=== PATIENT | male | born 1995 | race Asian ===

== ENCOUNTER 2022-12-16 12:43 | Emergency (ER) | payer BC ==
[2022-12-16] MEDS ORDERED: ONDANSETRON 4 MG/2 ML VIAL ONE (13:28)
[2022-12-16] MEDS ORDERED: MECLIZINE HCL 12.5 MG TAB ONE (13:30)
[2022-12-16] MEDS ORDERED: ONDANSETRON 4 MG (ODT) TAB ONE (13:31)
--- NOTE | 2022-12-16 13:33 | RAD REPORT ---
EXAM DESCRIPTION: CT - Head Brain Wo Cont - 12/16/2022 1:13 pm CLINICAL HISTORY: DIZZINESS Lightheadedness. COMPARISON: No comparisons TECHNIQUE: Noncontrast head CT images ad were obtained without IV contrast. Multiplanar reformats we re generated and reviewed. All CT scans are performed using dose optimization technique as appropriate and may include automated exposure control or mA/KV adjustment according to patient size. FINDINGS: No intracranial hemorrhage, mass, or edema. Midline structures are unremarkable. Normal ventricular caliber for age. Baig-white matter differentiation is preserved, without evidence of acute infarct. No abnormal extra- axial fluid collections. Mastoid air cells and visualized portions of the paranasal sinuses are clear. No acute bony findings. IMPRESSION: No evidence of an acute intracranial process.
[2022-12-16 13:43] LABS: Absolute Lymphocytes (CBC) 1.1 K/uL (0.7-4.9); Hematocrit 43.7 % (39.6-49.0); Lymphocytes % 25.7 % (15.3-44.8); MCV 78.2 fL (80-100); MPV 7.7 fL (7.6-11.3); RBC Red Blood Cell Count 5.59 M/uL (4.33-5.43)
[2022-12-16 13:47] LABS: Protime INR 0.98
[2022-12-16 14:05] LABS: Albumin 4.4 g/dL (3.4-5.0); Bilirubin Direct 0.1 mg/dL (0-0.2); Bilirubin Total 0.4 mg/dL (0.2-1.0); Magnesium 2.3 mg/dL (1.6-2.4); Potassium 3.7 mmol/L (3.5-5.1); Protein, Total 8.4 g/dL (6.4-8.2); Troponin High Sensitivity 4.1 pg/mL (<58.9)
--- NOTE | 2022-12-16 15:41 | EDPHYS ---
Physician Documentation [facility] Name: Aamir East Age: 27 yrs Sex: Male : 1995 Arrival Date: 12/16/2022 Time: 12:45 Bed 11 Private MD: ED Physician Dakota Rivas HPI: 12/16 13:01 This 27 yrs old Male presents to ER via EMS with complaints of Dizziness, jmm Weakness. 13:01 The patient presents with dizziness. Onset: The symptoms/episode began/occurred jmm acutely, just prior to arrival. Modifying factors: The symptoms are alleviated by nothing, the symptoms are aggravated by movement of head, changing position. This is a 27-year-old male with no chronic medical conditions the presents emerged part with complaints of palpitations and dizziness and generalized weakness. Patient states symptoms began while sitting in his chair he developed palpitations or shortness of breath. Patient went to stand up and was particularly dizzy and then subsequently developed generalized weakness. Denies any previous episode in the past. Denies chest pain. . Historical: - Allergies: 12:56 No Known Allergies; ap3 - Home Meds: 12:56 None [Active]; ap3 - PMHx: 12:56 None; ap3 - Immunization history:: Client reports receiving the 2nd dose of the Covid vaccine, Flu vaccine is not up to date. - Social history:: Smoking status: Patient denies any tobacco usage or history of. Patient uses alcohol, occasionally. ROS: 13:01 Constitutional: Positive for fatigue. jmm 13:01 Cardiovascular: Positive for palpitations. 13:01 Neuro: Positive for dizziness. 13:01 All other systems are negative. Exam: 13:01 Constitutional: This is a well developed, well nourished patient who is awake, alert, jmm and in no acute distress. Head/Face: atraumatic. 13:01 ENT: Moist Mucus Membranes Neck: Trachea midline, Supple Chest/axilla: Normal chest wall appearance and motion. 13:01 Abdomen/GI: Non distended Back: Normal ROM Skin: General appearance color normal MS/ Extremity: Moves all extremities, no obvious deformities appreciated, no edema noted to the lower extremities Neuro: Awake and alert 13:01 Eyes: Extraocular movements: Nystagmus: Horizontal, fatigable. 13:01 Cardiovascular: Rate: normal, Rhythm: regular. 13:01 Respiratory: the patient does not display signs of respiratory distress, Respirations: normal, Breath sounds: are clear throughout. 13:01 Neuro: Orientation: is normal, Mentation: is normal, Memory: is normal, Cerebellar function: Vital Signs: 12:54 Pulse 80; Resp 18; Temp 98.2; Pulse Ox 100% ; Weight 68.04 kg; Height 5 ft. 9 in. ap3 (175.26 cm); 13:00 BP 139 / 87; ap3 14:05 BP 141 / 86; Pulse 79; Resp 18; Pulse Ox 100% on R/A; ld1 12:54 Body Mass Index 22.15 (68.04 kg, 175.26 cm) ap3 MDM: 13:01 Patient medically screened. [facility] 15:39 Data reviewed: vital signs, nurses notes. Management of patient was discussed with the [facility] following: Dakota Rivas. Counseling: I had a detailed discussion with the patient and/or guardian regarding: the historical points, exam findings, and any diagnostic results supporting the discharge/admit diagnosis, lab results, the need for outpatient follow up, to return to the emergency department if symptoms worsen or persist or if there are any questions or concerns that arise at home. 15:39 ED course: Patient states feeling much better. Patient is encouraged to follow-up with [facility] cardiology for Holter monitoring. Patient otherwise given strict return precautions. Patient understood and agrees plan of care. 12/16 13:02 Order name: Basic Metabolic Panel [facility] 12/16 13:02 Order name: CBC with Diff [facility] 12/16 13:02 Order name: D-Dimer [facility] 12/16 13:02 Order name: LFT's [facility] 12/16 13:02 Order name: Magnesium [facility] 12/16 13:02 Order name: NT PRO-BNP [facility] 12/16 13:02 Order name: PT-INR [facility] 12/16 13:02 Order name: Troponin HS [facility] 12/16 13:45 Order name: CBC with Automated Diff; Complete Time: 14:37 EDMS 12/16 13:47 Order name: Protime (+INR); Complete Time: 14:37 EDMS 12/16 13:47 Order name: D-Dimer; Complete Time: 14:37 EDMS 12/16 14:05 Order name: Basic Metabolic Panel; Complete Time: 14:37 EDMS 12/16 14:05 Order name: Liver (Hepatic) Function; Complete Time: 14:37 EDMS 12/16 14:05 Order name: Troponin High Sensitivity; Complete Time: 14:37 EDMS 12/16 13:02 Order name: EKG; Complete Time: 13:02 [facility] 12/16 13:02 Order name: Cardiac monitoring; Complete Time: 13:32 [facility] 12/16 13:02 Order name: EKG - Nurse/Tech; Complete Time: 13:16 [facility] 12/16 13:02 Order name: IV Saline Lock; Complete Time: 13:32 [facility] 12/16 13:02 Order name: Labs collected and sent; Complete Time: 13:32 [facility] 12/16 13:02 Order name: O2 Per Protocol; Complete Time: 13:21 [facility] 12/16 13:02 Order name: O2 Sat Monitoring; Complete Time: 13:21 [facility] 12/16 13:03 Order name: CT Head Brain wo Cont [facility] 12/16 13:33 Order name: CT; Complete Time: 13:35 EDMS 12/16 14:05 Order name: NT PRO-BNP; Complete Time: 14:37 EDMS 12/16 14:05 Order name: Magnesium; Complete Time: 14:37 EDMS EC:04 Rate is 80 beats/min. Rhythm is regular. QRS [place] is Normal. NC interval is normal. QRS jmm interval is normal. QT interval is normal. No Q waves. T waves are Normal. No ST changes noted. Reviewed by me. Administered Medications: 13:32 Drug: Zofran (Ondansetron) 4 mg Route: PO; ld1 13:32 Drug: Meclizine 50 mg Route: PO; ld1 Disposition Summary: 12/16/22 15:40 Discharge Ordered Location: Home jm Condition: Stable [facility] Diagnosis - Palpitations jm Followup: [facility] - With: Private Physician - When: 2 - 3 days - Reason: Recheck today's complaints, Continuance of care, Re-evaluation by your physician Discharge Instructions: - Discharge Summary Sheet jmm - Palpitations jm Forms: - Medication Reconciliation Form jm - Thank You Letter jm - Antibiotic Education jm - Prescription Opioid Use [facility] Addendum: 12/17/2022 19:52 Co-signature as Attending Physician, Dakota DUTTA I reviewed the patient's care r n provided by the Advanced Practice Provider and agree with the diagnosis and treatment plan. Signatures: Dispatcher [employer] Stefan Paige PA PA jmm Nieto, Roman, MD MD rn Diane Velasquez RN RN ap3 Judi Turner RN RN ld1
--- NOTE | 2022-12-16 15:41 | ER ---
Nurse's Notes [facility] Name: Aamir East Age: 27 yrs Sex: Male : 1995 Arrival Date: 12/16/2022 Time: 12:45 Bed 11 Private MD: Diagnosis: Palpitations Presentation: 12/16 12:54 Chief complaint: Patient states: he was sitting at a desk, and then he felt a "skip in ap3 his heart" and then started feeling weak and dizzy. patient states this occurred at approx 1145 this morning. Coronavirus screen: At this time, the client does not indicate any symptoms associated with coronavirus-19. Ebola Screen: No symptoms or risks identified at this time. Initial Sepsis Screen: Does the patient meet any 2 criteria? No. Patient's initial sepsis screen is negative. Does the patient have a suspected source of infection? No. Patient's initial sepsis screen is negative. Risk Assessment: Do you want to hurt yourself or someone else? Patient reports no desire to harm self or others. Onset of symptoms was December 16, 2022 at 11:45. 12:54 Method Of Arrival: EMS: [facility] ap3 12:57 Acuity: DEANDRE 3 ap3 Triage Assessment: 12:56 General: Appears in no apparent distress. Behavior is calm, cooperative. Pain: Denies ap3 pain. Neuro: Level of Consciousness is awake, alert, obeys commands, Oriented to person, place, time, Reports dizziness. Cardiovascular: Reports palpitations, Patient's skin is warm and dry. Respiratory: Airway is patent Respiratory effort is even, unlabored, Respiratory pattern is regular, symmetrical. Historical: - Allergies: 12:56 No Known Allergies; ap3 - Home Meds: 12:56 None [Active]; ap3 - PMHx: 12:56 None; ap3 - Immunization history:: Client reports receiving the 2nd dose of the Covid vaccine, Flu vaccine is not up to date. - Social history:: Smoking status: Patient denies any tobacco usage or history of. Patient uses alcohol, occasionally. Screenin:57 [facility] ED Fall Risk Assessment (Adult) History of falling in the last 3 months, ap3 including since admission No falls in past 3 months (0 pts). Abuse screen: Denies threats or abuse. Nutritional screening: No deficits noted. Tuberculosis screening: No symptoms or risk factors identified. Assessment: 14:05 General: Appears in no apparent distress. comfortable, Behavior is calm, cooperative, ld1 appropriate for age. Pain: Denies pain. Neuro: Level of Consciousness is awake, alert, obeys commands, Oriented to person, place, time, situation. Neuro: Reports dizziness, headache. Cardiovascular: Capillary refill < 3 seconds Patient's skin is warm and dry. Respiratory: Airway is patent Respiratory effort is even, unlabored. GI: Abdomen is flat, non-distended. : No signs and/or symptoms were reported regarding the genitourinary system. EENT: No signs and/or symptoms were reported regarding the EENT system. Derm: No signs and/or symptoms reported regarding the dermatologic system. Musculoskeletal: No signs and/or symptoms reported regarding the musculoskeletal system. Vital Signs: 12:54 Pulse 80; Resp 18; Temp 98.2; Pulse Ox 100% ; Weight 68.04 kg; Height 5 ft. 9 in. ap3 (175.26 cm); 13:00 BP 139 / 87; ap3 14:05 BP 141 / 86; Pulse 79; Resp 18; Pulse Ox 100% on R/A; ld1 12:54 Body Mass Index 22.15 (68.04 kg, 175.26 cm) ap3 ED Course: 12:45 Patient arrived in ED. rg4 12:49 Stefan Lord PA is PHCP. jmm 12:49 Dakota Rivas MD is Attending Physician. jmm 12:57 Arm band placed on right wrist. ap3 12:57 EKG done, by ED staff. ap3 12:58 Triage completed. ap3 13:32 Judi Turner, GREGG is Primary Nurse. ld1 13:32 Inserted saline lock: 20 gauge in right antecubital area, using aseptic technique. ld1 Blood collected. 14:05 Patient has correct armband on for positive identification. Placed in gown. Bed in low ld1 position. Call light in reach. Side rails up X2. night monitor on. Pulse ox on. NIBP on. Door closed. Noise minimized. 14:05 No provider procedures requiring assistance completed. ld1 15:53 IV discontinued, intact, bleeding controlled, No redness/swelling at site. ld1 Administered Medications: 13:32 Drug: Zofran (Ondansetron) 4 mg Route: PO; ld1 13:32 Drug: Meclizine 50 mg Route: PO; ld1 Medication: 12:57 VIS not applicable for this client. ap3 Outcome: 15:40 Discharge ordered by . manasa 15:53 Discharged to home ambulatory. ld1 15:53 Condition: stable 15:53 Discharge instructions given to patient, Instructed on discharge instructions, follow up and referral plans. Demonstrated understanding of instructions, follow-up care. 15:53 Patient left the ED. ld1 Signatures: Stefan Lord PA PA jmm Garcia, Rubi rg4 Diane Velasquez RN RN ap3 Judi Turner RN RN ld1
[2022-12-16 17:11] VITALS: TEMP 98.2; O2SAT 100
[2022-12-16 17:13] VITALS: BP 141/86
--- NOTE | 2022-12-17 15:24 | EKG ---
Test Date: 2022-12-16 Test Time: 13:03:03 Risk Control Director: FRANK MEASUREMENT RESULTS: Intervals: Rate: 80 [place]: 136 QRSD: 98 QT: 376 QTc: 433 [place]: P: 68 [place]: 136 QRS: 82 T: 51 INTERPRETIVE STATEMENTS: Normal sinus rhythm Normal ECG No previous ECG available for comparison Electronically Signed On 12-17-22 15:20:22 SCREEN PRINTING MACHINE OPERATOR by Miguel A Lynch
== END 2022-12-16 15:53 | disposition home or self-care (01) ==
LOC: ER 12:43
DX: R00.2 Palpitations (principal)
CPT/HCPCS: 85025; 80048; 36415; 83735; 85610; 85379; 80076; 84484; 83880; 70450; J8597; Q0162; J2405; 93005